=== PATIENT | female | born 1985 | race Caucasian/White ===

== ENCOUNTER 2016-10-28 10:45 | Outpatient (CLI) | payer OTHER | END 2016-10-28 10:46 | disposition home or self-care (01) | LOC: LAB.WCP 10:45 | PROVIDERS: ATTEND Physician Assistant Medical | DX: H60.11 Cellulitis of right external ear (principal) | CPT/HCPCS: 87070; 87077; 87205 ==

== ENCOUNTER 2016-10-30 08:30 | Outpatient (CLI) | payer OTHER ==
--- NOTE | 2016-10-30 11:06 | Ultrasound Report ---
LEFT BREAST ULTRASOUND: 10/30/2016 CLINICAL HISTORY: A 31-year-old female who has a palpable prominence in the 9 o'clock position of th e left breast 1 cm lateral to the left nipple. TECHNIQUE: Real-time scanning was performed with customer field representative static images obtained. FINDINGS: Left breast ultrasound demonstrates an oval-shaped, solid hypoechoic mass in the 9 o'clock position 1 cm lateral to the left nipple measuring 1.0 x 0.55 x 1.1 cm. This mass has typical lu cteristics of a benign fibroadenoma. Recommend it be followed in six months with a repeat left breas t ultrasound to further confirm this benign etiology. IMPRESSION: PATIENT'S PALPABLE PROMINENCE IN THE 9 O'CLOCK POSITION OF THE LEFT BREAST REPRESENTS A SOLID OVAL-SHAPED HYPOECHOIC MASS MEASURING 1.0 X 0.55 X 1.1 CM. 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 IT SHOULD BE FOLLOWED WITH A REPEAT LEFT BREAST ULTRASOUND IN SIX MONTHS FOR FU RTHER EVALUATION. BIRADS CATEGORY 3 - PROBABLY BENIGN FINDING. SHORT INTERVAL IMAGING STUDY RECOMMENDED. REPEAT LEFT BREAST ULTRASOUND IN SIX MONTHS. COMMENT: Dr. Bullock informed the patient of the probably benign finding. He indicated to her that she should return in six months for a repeat left breast ultrasound for further evaluation. These in structions were also given to the patient in writing. JOB #: [id number] EXT JOB #:
== END 2016-10-30 08:31 | disposition home or self-care (01) ==
LOC: DI 08:30
PROVIDERS: ATTEND Physician Assistant Medical
DX: N63 Unspecified lump in breast (principal)
CPT/HCPCS: 76642

== ENCOUNTER 2016-11-12 09:04 | Outpatient (CLI) | payer OTHER | END 2016-11-12 09:05 | disposition home or self-care (01) | LOC: LAB.R 09:04 | PROVIDERS: ATTEND Physician Assistant Medical | DX: H60.11 Cellulitis of right external ear (principal) | CPT/HCPCS: 87081; 87640 ==

== ENCOUNTER 2017-05-14 13:31 | Outpatient (CLI) | payer OTHER ==
--- NOTE | 2017-05-14 15:44 | Ultrasound Report ---
DATE OF SERVICE: 05/14/2017 LEFT BREAST ULTRASOUND: 05/14/2017 CLINICAL INDICATION: Followup palpable abnormality left inner breast. TECHNIQUE: Real-time scanning was performed with sales representative wire rope static images obtained. FINDINGS: Ultrasound of the left inner periareolar breast was performed. At the site of the palpable abnormality, the previously seen hypoechoic nodule appears larger, now measuring 2.2 x 2.1 x 1.5 cm, and some margins appear more irregular than on previous imaging. Biopsy is recommended. The lesion appears amenable to ultrasound- guided core needle biopsy. IMPRESSION: SUSPICIOUS FINDING, WITH INCREASE IN SIZE AND IRREGULARITY OF THE NODULE FROM PREVIOUS EXAMINATION. RECOMMENDATION: BIOPSY. THE NODULE APPEARS AMENABLE TO ULTRASOUND-GUIDED CORE NEEDLE BIOPSY. BIRADS CATEGORY 4-SUSPICIOUS ABNORMALITY. Results and recommendations discussed with the patient at the time of the examination, and called to Katelyn Wright PA-C on 05/14/2017. [facility] to [facility] the biopsy. TD: 05/14/2017 16:44 SLOANE
== END 2017-05-14 13:32 | disposition home or self-care (01) ==
LOC: DI 13:31
PROVIDERS: ATTEND Physician Assistant Medical
DX: N63.20 Unspecified lump in the left breast, unspecified quadrant (principal)
CPT/HCPCS: 76642

== ENCOUNTER 2017-05-26 12:01 | Outpatient (CLI) | payer OTHER ==
[2017-05-26 14:35] VITALS: BP 123/80
[2017-05-26] MEDS ORDERED: BUPIVACAINE 0.5% PF 10 ML VIAL IM ONE (14:47)
[2017-05-26] MEDS ORDERED: BUFFERED LIDOCAINE 10 ML SYRINGE IU ONE (14:47)
--- NOTE | 2017-05-26 15:16 | Ultrasound Report ---
ULTRASOUND-GUIDED CORE NEEDLE BIOPSY LEFT BREAST: 05/26/2017 CLINICAL HISTORY: Increase in size of likely fibroadenoma 9 o'clock position periareolar left breast. FINDINGS: Following obtaining informed consent, the patient's left breast was prepped and draped in the usual sterile fashion. The skin and soft tissues were anesthetized with lidocaine and Sensorcaine. A small jae was made in the skin with a #11 blade. A 12-gauge Celero vacuum assisted device was used to obtain 3 specimens. A Celero marker was placed into the biopsy cavity under ultrasound guidance. The patient was taken to a separate mammography machine, and a 2-view digital mammogram was performed, documenting the marker in the expected location and no significant postbiopsy hematoma. The wound was dressed and ice applied. The patient was observed for approximately 15 minutes, then was discharged from [facility] in good condition following instructions on wound care and obtaining biopsy results. The tissue was sent for histologic analysis. IMPRESSION: ULTRASOUND-GUIDED BIOPSY OF THE LEFT BREAST. AN ADDENDUM WILL BE MADE TO THIS REPORT WHEN PATHOLOGY IS REVIEWED TO ESTABLISH CONCORDANCE. TD: 05/26/2017 15:15
== END 2017-05-26 12:02 | disposition home or self-care (01) ==
LOC: DI 12:01
PROVIDERS: ATTEND Physician Assistant Medical
DX: D24.2 Benign neoplasm of left breast (principal)
CPT/HCPCS: 19083

== ENCOUNTER 2017-10-22 08:00 | Outpatient (CLI) | payer OTHER | END 2017-10-22 08:01 | disposition home or self-care (01) | LOC: LAB.WCP 08:00 | PROVIDERS: ATTEND Physician Assistant | DX: R51 Headache (principal) | CPT/HCPCS: 36415; 81599; 86617; 86618 ==

== ENCOUNTER 2018-03-11 09:24 | Outpatient (CLI) | payer OTHER | END 2018-03-11 23:59 | disposition home or self-care (01) | LOC: LAB.WCP 09:24 | PROVIDERS: ATTEND Physician Assistant | DX: N91.2 Amenorrhea, unspecified (principal) | CPT/HCPCS: 36415; 84702 ==

== ENCOUNTER 2022-06-20 11:21 | Outpatient (CLI) | payer OTHER ==
[2022-06-20 11:41] LABS: BASOPHILS % (AUTO) 0.2 %; EOSINOPHILS # (AUTO) 0.1 10^3/uL (0.0-0.7); EOSINOPHILS % (AUTO) 0.8 %; HCT - HEMATOCRIT 40.3 % (37.0-47.0); LYMPHOCYTES # (AUTO) 2.6 10^3/uL (1.5-3.5); LYMPHOCYTES % (AUTO) 23.9 %; MEAN CORPUSCULAR HEMOGLOBIN 30.9 pg (27.0-31.0); MEAN CORPUSCULAR HGB CONC 34.7 g/dL (32.0-36.0); MEAN PLATELET VOLUME 9.5 fL (7.9-10.8); MONOCYTES # (AUTO) 0.6 10^3/uL (0.0-1.0); MONOCYTES % (AUTO) 5.3 %; NEUTROPHILS # (AUTO) 7.6 10^3/uL (1.5-6.6); NEUTROPHILS % (AUTO) 69.6 %; PLT - PLATELET COUNT 274 10^3/uL (130-450); RED BLOOD COUNT 4.53 10^6/uL (4.20-5.40); RED CELL DISTRIBUTION WIDTH 11.9 % (12.0-15.0); WHITE BLOOD COUNT 10.9 x10^3/uL (4.8-10.8)
[2022-06-20 11:58] LABS: % IRON SATURATION 39 % (20-50); IRON 138 ug/dL (28-170); TOTAL IRON BINDING CAPACITY 353 ug/dL (250-450); TRANSFERRIN 252 mg/dL (192-382)
[2022-06-20 12:12] LABS: THYROID STIMULATING HORMONE 1.08 uIU/mL (0.34-5.60)
[2022-06-20 12:14] LABS: FREE T4 (FREE THYROXINE) 0.93 ng/dL (0.58-1.64)
[2022-06-20 12:18] LABS: FERRITIN 75.5 ng/mL (11.0-306.8)
[2022-06-21 08:10] LABS: VITAMIN D 25-HYDROXY 73.6 ng/mL (30.0-100.0)
== END 2022-06-20 11:22 | disposition home or self-care (01) ==
LOC: LAB 11:21
PROVIDERS: ATTEND Nurse Practitioner
DX: L65.9 Nonscarring hair loss, unspecified (principal)
CPT/HCPCS: 36415; 82306; 82607; 82728; 83540; 84439; 84443; 84466; 84480; 84630; 85025

== ENCOUNTER 2022-07-12 08:00 | Outpatient (CLI) | payer OTHER ==
[2022-07-12 12:21] LABS: BILIRUBIN,URINE NEGATIVE (NEGATIVE); GLUCOSE, URINE (UA) NEGATIVE (NEGATIVE); KETONES,URINE (UA) NEGATIVE (NEGATIVE); LEUKOCYTE ESTERASE, URINE NEGATIVE (NEGATIVE); NITRITE,URINE NEGATIVE (NEGATIVE); OCCULT BLOOD,URINE NEGATIVE (NEGATIVE); PROTEIN,URINE NEGATIVE (NEGATIVE); UROBILINOGEN,URINE 0.2 (NORMAL) E.U./dL (NORMAL)
[2022-07-12 12:24] LABS: CLARITY,URINE CLOUDY (CLEAR)
[2022-07-12 12:59] LABS: AMORPHOUS SEDIMENT,UR Marked /LPF; BACTERIA,URINE Moderate /HPF (None Seen); RBC,URINE 0-5 /HPF (0-5); SQUAMOUS EPITHELIAL CELL,UR RARE Squamous (<= Few); WBC,URINE 0-3 /HPF (0-5)
[2022-07-12 13:00] LABS: CRYSTALS,URINE 0-2 Calcium Oxalate /LPF
[2022-07-12 21:22] LABS: BACTERIAL VAGINOSIS DNA NEGATIVE (NEGATIVE); CANDIDA GLABRATA DNA NEGATIVE (NEGATIVE); CANDIDA GROUP DNA NEGATIVE (NEGATIVE); CANDIDA KRUSEI DNA NEGATIVE (NEGATIVE); TRICHOMONAS VAGINALIS DNA NEGATIVE (NEGATIVE)
== END 2022-07-12 23:59 | disposition home or self-care (01) ==
LOC: LAB.WC 08:00
PROVIDERS: ATTEND Nurse Practitioner
DX: L29.8 Other pruritus (principal); Z32.01 Encounter for pregnancy test, result positive
CPT/HCPCS: 81001; 81514; 87086

== ENCOUNTER 2022-07-24 22:18 | Outpatient (CLI) | payer OTHER ==
--- NOTE | 2022-07-25 10:03 | Ultrasound Report ---
PROCEDURE: OB First Trimester w/TV INDICATIONS: POSITIVE TEST OUTSIDE/PRIOR DATING DATA: Last menstrual period (LMP): 05/28/2022. LMP-based estimated date of delivery (FINN): 03/04/2023. First dating scan (date and location): 07/24/2022. Estimated date of delivery (FINN) from first dating scan: 02/27/2023. TECHNIQUE: Real-time scanning was performed of the fetus and maternal pelvic organs, with image documentation. Endovaginal scanning was also performed to better visualize the fetus and maternal ovaries. COMPARISON: None. FINDINGS: Embryo: Single live intrauterine is seen with yolk sac and pole. [place]-rump length i s 2.2 cm, compatible with an estimated gestational age of 8 weeks 6 days. A small perigestational sac hemorrhage is seen measuring 1.7 x 1.4 x 1.3 cm. Heart rate: 171 bpm. Measurement variability in dating: +/- 4 weeks by LMP, +/- 7 days by mean sac diameter (use before 6 weeks gestation if crown-rump length not able to be measured), +/- 5 days by crown-rump length (6-12 weeks gestation). Maternal organs: A right corpus enhanced cyst is present. Left ovary is unremarkable. IMPRESSION: 1.Single live intrauterine with estimated gestational age of 8 weeks 6 days giving an ultra sound FINN of 02/27/2023. 2.Small perigestational sac hemorrhage measures up to 1.7 cm. Reviewed by: Ji Goodman MD on 07/25/2022 10:02 AM PDT Approved by: Ji Goodman MD on 07/25/2022 10:02 AM PDT Station ID: [id number]
== END 2022-07-24 22:19 | disposition home or self-care (01) ==
LOC: DI 22:18
PROVIDERS: ATTEND Obstetrics & Gynecology
DX: O20.8 Other hemorrhage in early pregnancy (principal); Z3A.08 8 weeks gestation of pregnancy

== ENCOUNTER 2022-07-30 12:36 | Outpatient (CLI) | payer OTHER ==
[2022-07-30 12:50] LABS: BASOPHILS % (AUTO) 0.2 %; EOSINOPHILS # (AUTO) 0.1 10^3/uL (0.0-0.7); EOSINOPHILS % (AUTO) 0.6 %; HCT - HEMATOCRIT 37.9 % (37.0-47.0); HGB - HEMOGLOBIN 12.9 g/dL (12.0-16.0); LYMPHOCYTES # (AUTO) 2.1 10^3/uL (1.5-3.5); LYMPHOCYTES % (AUTO) 18.6 %; MEAN CORPUSCULAR VOLUME 91.1 fL (81.0-99.0); MEAN PLATELET VOLUME 9.6 fL (7.9-10.8); MONOCYTES # (AUTO) 0.5 10^3/uL (0.0-1.0); MONOCYTES % (AUTO) 4.7 %; NEUTROPHILS # (AUTO) 8.3 10^3/uL (1.5-6.6); NEUTROPHILS % (AUTO) 75.4 %; PLT - PLATELET COUNT 251 10^3/uL (130-450); RED BLOOD COUNT 4.16 10^6/uL (4.20-5.40); RED CELL DISTRIBUTION WIDTH 12.5 % (12.0-15.0)
[2022-07-30 13:02] LABS: BILIRUBIN,URINE NEGATIVE (NEGATIVE); GLUCOSE, URINE (UA) NEGATIVE (NEGATIVE); KETONES,URINE (UA) NEGATIVE (NEGATIVE); LEUKOCYTE ESTERASE, URINE NEGATIVE (NEGATIVE); NITRITE,URINE NEGATIVE (NEGATIVE); OCCULT BLOOD,URINE NEGATIVE (NEGATIVE); PROTEIN,URINE NEGATIVE (NEGATIVE); UROBILINOGEN,URINE 0.2 (NORMAL) E.U./dL (NORMAL)
[2022-07-30 13:03] LABS: CLARITY,URINE CLEAR (CLEAR)
[2022-07-30 13:08] LABS: AMORPHOUS SEDIMENT,UR Few /LPF; BACTERIA,URINE Few /HPF (None Seen); RBC,URINE None Seen /HPF (0-5); SQUAMOUS EPITHELIAL CELL,UR FEW Squamous (<= Few); WBC,URINE 0-3 /HPF (0-5)
[2022-07-31 03:08] LABS: HBsAG SCREEN Negative (Negative)
[2022-07-31 09:09] LABS: RPR Non Reactive (Non Reactive); VARICELLA-ZOSTER AB IGG 239 index (Immune >165)
[2022-07-31 16:08] LABS: HCV AB Non Reactive (Non Reactive); HIV SCREEN 4TH GENERATION Non Reactive (Non Reactive)
== END 2022-07-30 12:37 | disposition home or self-care (01) ==
LOC: LAB 12:36
PROVIDERS: ATTEND Obstetrics & Gynecology
DX: Z34.01 Encounter for supervision of normal first pregnancy, first trimester (principal); Z36.89 Encounter for other specified antenatal screening
CPT/HCPCS: 36415; 81001; 85025; 86592; 86762; 86787; 86803; 86850; 86900; 86901; 87086; 87340; 87389

== ENCOUNTER 2022-08-08 08:00 | Outpatient (CLI) | payer OTHER ==
[2022-08-09 00:33] LABS: CHLAMYDIA TRACHOMATIS DNA NEGATIVE (NEGATIVE); NEISSERIA GONORRHOEAE DNA NEGATIVE (NEGATIVE); TRICHOMONAS VAGINALIS DNA NEGATIVE (NEGATIVE)
== END 2022-08-08 23:59 | disposition home or self-care (01) ==
LOC: LAB.WC 08:00
PROVIDERS: ATTEND Obstetrics & Gynecology
DX: Z11.3 Encounter for screening for infections with a predominantly sexual mode of transmission (principal)
CPT/HCPCS: 87491; 87591; 87661

== ENCOUNTER 2022-09-03 12:15 | Outpatient (CLI) | payer OTHER | END 2022-09-03 12:16 | disposition home or self-care (01) | LOC: LAB 12:15 | PROVIDERS: ATTEND Obstetrics & Gynecology | DX: O09.511 Supervision of elderly primigravida, first trimester (principal) ==

== ENCOUNTER 2022-09-17 13:14 | Outpatient (CLI) | payer OTHER ==
[2022-09-19 20:08] LABS: AFP MOM 0.94 (.); AFP VALUE 33.1 ng/mL (.); DIA MOM 1.57 (.); DIA VALUE 249.91 pg/mL (.); DSR (BY AGE) 1 IN 212 (.); DSR (SECOND TRIMESTER) 1 IN 475 (.); GESTAT. AGE METHOD EDD (.); HCG VALUE 39565 mIU/mL (.); INSULIN DEP DIABETES No (.); MATERNAL AGE AT EDD 36.5 yr (.); MULTIPLE GESTATION No (.); OPEN SPINA BIFIDA RISK 1 IN 10000 (.); RACE Caucasian (.); RESULTS Report (.); TEST RESULTS *Screen Negative* (.); TRISOMY 18 RISK Not increased (.); UE3 VALUE 1.61 ng/mL (.); WEIGHT 146 lbs (.)
== END 2022-09-17 13:15 | disposition home or self-care (01) ==
LOC: LAB 13:14
PROVIDERS: ATTEND Obstetrics & Gynecology
DX: O09.511 Supervision of elderly primigravida, first trimester (principal); Z36.0 Encounter for antenatal screening for chromosomal anomalies
CPT/HCPCS: 36415; 81511

== ENCOUNTER 2022-10-16 16:14 | Outpatient (CLI) | payer OTHER ==
--- NOTE | 2022-10-17 16:34 | Ultrasound Report ---
PROCEDURE: OB Detailed Eval INDICATIONS: SUPERVISION OF OUTSIDE/PRIOR DATING DATA: Last menstrual period (LMP): 05/28/2022. LMP-based estimated date of delivery (FINN): 03/04/2023. First dating scan (date and location): 07/24/2022. Estimated date of delivery (FINN) from first dating scan: 02/27/2023. TECHNIQUE: Real-time scanning was performed of the fetus, with image documentation and biometric measurements. Endovaginal scanning: No COMPARISON: 07/24/2022 FINDINGS: General: A single living intrauterine gestation is present. Presentation: Vertex Placenta: Placental position is posterior, without previa. Amniotic fluid index: 14.6 cm, within normal limits for gestational age. heart rate: 143 beats per minute. Maternal cervical canal: 4.1 cm long; normal length is 2.5 cm or more. biometrics: Biparietal diameter: 50 mm: 21 weeks 0 days Head circumference: 187 mm; 21 weeks 0 days Abdominal circumference: 162 mm; 21 weeks 4 days Femur length: 32 mm; 20 weeks 1 day Estimated gestational age from initial scan: 20 weeks 6 days Composite gestational age from present scan: 20 weeks 6 days Estimated weight and percentile: 386 g, which is at the 48th percentile for gestational age Measurement variability in biometric dating: +/- 10 days from 12-20 weeks gestation, +/- 2 weeks from 20-30 weeks gestation, +/- 3 weeks at 30 weeks gestation or later. Anatomic survey: Neuro: Ventricles are normal at less than 10 mm. Cisterna magna is normal at 3-11 mm. Cerebellum i s normal in size and morphology. Nuchal skin fold: Normal at less than 6 mm between 14 and 20 weeks gestational age. Face: Nose and lips, facial profile are normal. Spine: No evidence for spina bifida. Heart: 4-chambered heart is present, with normal ventricular outflow tracts. Diaphragm: Diaphragm is intact. Stomach: Left-sided stomach is present. Kidneys: No hydronephrosis. Normal is less than 5 mm in 2nd trimester, less than 7 mm in 3rd trimester. Cord: 3 vessel cord has orthotopic insertion. Bladder: Normal in size. Extremities: All 4 extremities are visualized. IMPRESSION: 1. Single living intrauterine gestation. 2. Appropriate interval growth. Reviewed by: Jasson Mon MD on 10/17/2022 4:33 PM PDT Approved by: Jasson Mon MD on 10/17/2022 4:33 PM PDT Station ID: [id number]
== END 2022-10-16 16:15 | disposition home or self-care (01) ==
LOC: DI 16:14
PROVIDERS: ATTEND Obstetrics & Gynecology
DX: O09.512 Supervision of elderly primigravida, second trimester (principal); Z3A.20 20 weeks gestation of pregnancy